=== PATIENT | male | born 1990 | race Caucasian/White ===

== ENCOUNTER → 2022-02-04 | Day surgery (SDC) | payer OTHER, BC ==
[~2022-02-04] MED LIST: FISH OIL; HYDROCODON-ACE1 EAC2 PO; IBUPROFEN200 M1 PO; MULTI-VITAMIN1 EACH PO
[2022-02-04 07:34] LABS: HEMOGLOBIN 16.2 gm/dl (14.0-17.5); RED BLOOD COUNT 5.07 M/UL (4.20-5.50); WHITE BLOOD COUNT 7.7 K/UL (4.5-11.0)
[2022-02-04 08:04] LABS: BUN/CREATININE RATIO 12 (0-10)
== END | disposition home or self-care (01) ==
LOC: OR 06:51
PROVIDERS: Orthopaedic Surgery
DX: S62.616A Displaced fracture of proximal phalanx of right little finger, initial encounter for closed fracture (principal); W19.XXXA Unspecified fall, initial encounter
CPT/HCPCS: 73140; 76000; 80048; 85027; J0690; J2001; J2250; J2405; J2704; J3010; J7120

== ENCOUNTER → 2022-03-10 | Day surgery (SDC) | payer OTHER ==
[~2022-03-10] MED LIST changes: +HYDROCODON-ACE1 EAC4 PO
== END | disposition home or self-care (01) ==
LOC: OR 06:27
DX: S62.616D Displaced fracture of proximal phalanx of right little finger, subsequent encounter for fracture with routine healing (principal); E66.9 Obesity, unspecified; Z68.36 Body mass index [BMI] 36.0-36.9, adult
CPT/HCPCS: 73130; 76000; J0690; J1100; J1885; J2001; J2250; J2405; J2704; J3010